=== PATIENT | male | born 1930 | race Caucasian/White ===

== ENCOUNTER 2016-03-28 15:34 | Emergency (ER) | payer OTHER ==
--- NOTE | 2016-03-28 16:30 | PROVIDER DOCUMENTATION ---
HPI-Head Injury - General Chief Complaint: Fall Stated Complaint: Fall Time Seen by Provider: 03/28/16 15:38 Source: patient Allergies/Adverse Reactions: Patient Allergies Allergy/AdvReac Type Severity Reaction Status Date / Time No Known Allergies Allergy Verified 03/28/16 16:10 Home Medications: Aliproprophen 1 dose PO DAILY 01/26/14 Valsartan [Diovan] 160 mg PO DAILY 01/26/14 - History of Present Illness-Head Injury Nature of Presenting Problem: Pt is 86 y/o M presents to the ED via EMS with fall. EMS states Pt was in the library reaching for a book and fell back and hit his head on the table. EMS states Pt tried to go home but the outreach librarian would not let him. Pt denies N/V/ D. Head Injury Location: reports: occipital Other injuries associated with incident:: reports: none Quality of Pain: reports: aching Severity: reports: moderate Onset/Duration: reports: just prior to arrival Timing: reports: still present Method of Injury: reports: direct blow, fell Any recent trauma/injury?: reports: major, to head Loss of Consciousness: no loss of consciousness Modifying Factors: improves with: nothing Injury Associated Symptoms: denies: arm pain, back/neck pain, chest pain, diaphoresis, dizziness, headaches, joint pain, muscle aches, nausea, puncture wound, shortness of breath, sensory/motor loss, snap/crack/pop sensation, pain with inspiration, unable to bear weight, vomiting, weakness, trouble walking Locality of Occurance: Other (Library) Similar Symptoms Previously?: No Recently seen or treated by another doctor?: No Review of Systems - Adult - REVIEW OF SYSTEMS - ADULT Constitutional: denies: chills, fever Eyes: denies: blurred vision, double vision Ears, Nose, Mouth & Throat: denies: ear pain, nose pain, throat pain Cardiovascular: denies: chest pain, heart murmur, irregular heart rate Respiratory: denies: cough, shortness of breath, wheezing Gastrointestinal: denies: abdominal pain, diarrhea, nausea, vomiting Genitourinary: denies: dysuria, hematuria Musculoskeletal: denies: bone pain, joint pain, neck pain Integumentary: reports: other (hematoma to posterior head). denies: hives, itching Neurological: denies: dizziness/vertigo, headache/migraines Psychiatric: reports: no symptoms reported Endocrine: reports: no symptoms reported Hematologic/Lymphatic: reports: no symptoms reported Allergic/Immunologic: reports: no symptoms reported All Other Systems: Reviewed and Negative Past History - Adult - PAST MEDICAL HISTORY-ADULT Review of Records: reports: Nursing Assessment Review, Medications Reviewed, Social history reviewed & non-contributory. Major Childhood Illnesses: reports: denies history Cardiovascular: reports: HTN Respiratory: reports: denies history Gastrointestinal: reports: denies history Obstetrical/Gynecological: reports: denies history Genitourinary: reports: denies history Musculoskeletal: reports: arthritis Neurological: reports: denies history Psychiatric: reports: denies history Endocrine/Immune: reports: denies history Other Conditions: reports: denies history - PRIOR SURGERIES/PROCEDURES Surgical/Procedure History: reports: joint replacement - IMMUNIZATION STATUS Childhood Immunizations: See Nurse Assessment Flu Vaccine: See Nurse Assessment - FAMILY HISTORY Family History: reviewed, not pertinent - SOCIAL HISTORY Smoking: denies Substance Use: denies Living Situation: family Physical Exam- Neurological - Physical Exam-Neuro General Appearance: appears well, alert, no apparent distress Eye Exam: bilateral eye: normal inspection, PERRL, EOMI HENMT: normocephalic/atraumatic, moist mucous membranes, normal ENT inspection, TMs normal, pharynx normal Head Injury: other (hematoma to posterior of head) Neck: non-tender, full range of motion, supple, normal inspection Respiratory: chest non-tender, lungs clear, normal breath sounds, no pleuratic chest pain, no respiratory distress, no accessory muscle use Cardiovascular: normal peripheral pulses, regular rate, rhythm, no edema, no gallop, no JVD, no murmur Abdominal Exam: normal bowel sounds, non tender, soft, no organomegaly, no pulsatile mass Lymphatic: no adenopathy Extremity: normal range of motion, non-tender, normal gait, normal inspection, no pedal edema, no calf tenderness, normal capillary refill, 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 hearing, normal speech, PERRL Coordination/Gait: normal finger to nose, normal gait, negative Romberg's sign Motor/Sensory: no motor deficit, no sensory deficit, no pronator drift, negative Babinski's sign Neurologic: computer game designer II-XII nml as tested, grossly normal, no motor/sensory deficits Integumentary: normal color, normal turgor, warm/dry, other (hematoma to posterior head) Psych/Mental Status: AL, normal mood/affect, normal thought content, normal thought process, oriented x 3 Progress - PLAN OF CARE/RESULTS Progress/Plan/Lab Results: Orders Category Date Time Status Apply C-Collar DIRECTED Care 03/28/16 16:19 Active HEAD/C-SPINE W/O CONTRAST [CT] Stat Exams 03/28/16 15:44 Draft Vital Signs - 24 hr 03/28/16 15:36 Temperature 98.7 F Pulse Rate 74 Respiratory 18 Rate Blood Pressure 184/94 O2 Sat by Pulse 97 Oximetry - CT/MRI 1 CT Study: Cervical Spine (substanial multilevel degenerative disease. 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 Possible nondisplaced fracture through the base of this accessory ossification center/spinous process. The remainder of the C1 vertrbra appears intact. No other fracture or subluxation indentified.), Head (A 1.9 x 0.8 cm hyperdense extra-axial lesion at R superior temporal region. This is somewhat suspicious for a small intrdural hematoma. There is no associated skull fracture. Other lesion such as meningioma cannot be entirely excluded. There is no mass effect on the ventricular system or midline shift. There are paranasal sinus disease and L mastoid air cell effusion noted.) Impression: Abnormal - CONSULTS/PCP/HOSPITALIST Notification #1 *Consult/PCP/Hospitalist*: Dr. Morocho Time Discussed: 16:40 (Dr. Morocho accepted admit ) Reason/Comments: Dr. Tilley consults with Dr. Morocho about admit of Pt Consult Disposition: Admit Departure - Departure Time of Disposition Order: 16:38 DIAGNOSIS: Epidural hematoma Disposition: ADMITTED INPATIENT 09 Certified Medical Emergency: Emergent Condition: Stable Additional Instructions: ED Follow Up Instructions: You have been treated by a care provider in the Emergency Department. These instructions are being provided to you so you can have an understanding of how to care for yourself upon discharge. Upon discharge from the Emergency Department, you are responsible for making arrangements for follow-up care by a physician of your choice. Take all prescribed medications as directed. Return to the Emergency Department immediately for any new or worsening symptoms. You may call the Physician Referral phone number at [phone] to obtain a list of Physicians who are taking new patients. Referrals: Marifer Jolley MD [Primary Care Provider] - Attestation - Scribe Verification/Attestation Scribe:: Dalila Sue Acting as Scribe for:: Last Leslie Scribe documention review:: This chart was documented by a scribe and accurately reflects the service the provider performed and the decisions made by the provider.
--- NOTE | 2016-03-28 16:35 | Diag Imaging Result Document ---
PROCEDURE NAME: HEAD/C-SPINE W/O CONTRAST - 03/28/2016 CT HEAD WITHOUT CONTRAST: TECHNIQUE: A dose reduction protocol was used. No comparison exam. FINDINGS: There is a subcutaneous hematoma at the left posterior scalp. There is a 1.9 cm in AP dimension by 0.8 cm in thickness extra-axial hyperdense lesion at the right superior temporal lobe. This is somewhat suspicious for a small epidural hematoma. There is no underlying skull fracture identified, however. Other extra-axial lesion such as meningioma cannot be entirely excluded. There is no mass effect on the ventricular system or midline shift. There is no other intracranial hemorrhage identified. There is no intracranial edema identified. There is no skull fracture. There is paranasal sinus disease noted. There is a left mastoid effusion also noted. IMPRESSION: 1. A 1.9 x 0.8 cm hyperdense extra-axial lesion at right superior temporal region. This is suspicious for a small epidural hematoma. There is no associated skull fracture. Other lesion such as meningioma cannot be entirely excluded. There is no mass effect on the ventricular system or midline shift. 2. There are paranasal sinus disease and left mastoid air cell effusion noted. CT CERVICAL SPINE WITHOUT CONTRAST: TECHNIQUE: Axial and reformatted sagittal and coronal images are obtained. A dose reduction protocol was used. No comparison exam. FINDINGS: There are substantial degenerative changes at the atlantoaxial articulation. There is substantial multilevel degenerative disk and degenerative facet disease. There is an accessory ossification center or spinous process at the posterior aspect of the midline posterior arch of C1. There is mildly irregular lucency through the base of this. The may represent a chronically ununited accessory ossification center but nondisplaced fracture through the base of the accessory ossification center cannot be excluded. The remainder of the posterior and anterior arches of C1 appear intact. There is possibly mild precervical soft-tissue swelling at the C1 level on the right. There is no other fracture identified. There is no subluxation seen. IMPRESSION: 1. Substantial multilevel degenerative disease. 2. 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 Possible nondisplaced fracture through the base of this accessory ossification center/spinous process. The remainder of the C1 vertebra appears intact. 3. No other fracture or subluxation identified. Verbal results provided to Dr. Tilley at 4:19 p.m. on 03/28/2016. RENATA
[2016-03-28 16:58] VITALS: BP 196/94
== END 2016-03-28 17:26 ==
LOC: P.ED 15:34
DX: S06.4X0A Epidural hemorrhage without loss of consciousness, initial encounter (principal); R51 Headache; S00.83XA Contusion of other part of head, initial encounter; J32.8 Other chronic sinusitis; I10 Essential (primary) hypertension; M19.90 Unspecified osteoarthritis, unspecified site; Z79.899 Other long term (current) drug therapy; Z96.60 Presence of unspecified orthopedic joint implant; W19.XXXA Unspecified fall, initial encounter
CPT/HCPCS: 70450; 72125